=== PATIENT | female | born 1970 | race African-American/Black ===

== ENCOUNTER 2016-10-30 16:46 | Emergency (ER) | payer OTHER ==
[~2016-10-30] VITALS: Ht 152.4 cm; Wt 109.8 kg
[~2016-10-30 16:46] MED LIST: CAL40 PO
[2016-10-30 17:11] VITALS: BP 154/82
== END 2016-10-30 18:03 | disposition home or self-care (01) ==
LOC: ED 16:46
DX: S83.411A Sprain of medial collateral ligament of right knee, initial encounter (principal); I10 Essential (primary) hypertension; Z88.0 Allergy status to penicillin; Z88.5 Allergy status to narcotic agent; X58.XXXA Exposure to other specified factors, initial encounter; Y93.89 Activity, other specified; Y92.89 Other specified places as the place of occurrence of the external cause; Y99.8 Other external cause status

== ENCOUNTER 2016-11-29 18:05 | Emergency (ER) | payer OTHER ==
[~2016-11-29] VITALS: Ht 152.4 cm; Wt 108.0 kg
[2016-11-29 20:01] VITALS: BP 156/80
== END 2016-11-29 20:01 | disposition home or self-care (01) ==
LOC: ED 18:05
DX: J02.9 Acute pharyngitis, unspecified (principal); J20.9 Acute bronchitis, unspecified; I10 Essential (primary) hypertension; Z88.0 Allergy status to penicillin; Z88.5 Allergy status to narcotic agent

== ENCOUNTER 2017-04-26 14:08 | Inpatient (IN) | payer OTHER ==
[~2017-04-26] VITALS: Ht 152.4 cm; Wt 108.9 kg
[2017-04-26 15:37] LABS: BASOPHIL % 0.1 % (0-2); PLATELET COUNT 355 x10^3mcL (130-400)
[2017-04-26 15:38] LABS: CALCIUM 8.7 mg/dL (8.5-10.1); CARBON DIOXIDE 27.7 mmol/L (21-32); CHLORIDE SERUM 104 mmol/L (98-107); CREATININE SERUM 0.9 mg/dL (0.6-1.0); GFR1 > 60 mL/min; GLUCOSE SERUM 101 mg/dL (74-106); POTASSIUM SERUM 3.8 mmol/L (3.5-5.1); RED CELL DISTRIBUTION WIDTH 17.9 % (11.5-14.5); SODIUM SERUM 140 mmol/L (136-145)
[2017-04-26 15:44] LABS: ALKALINE PHOSPHATASE 85 U/L (46-116); ALT/SGPT 32 U/L (14-59); AST/SGOT 15 U/L (15-37); BILIRUBIN TOTAL 0.35 mg/dL (0.20-1.00); LIPASE 192 IU/L (73-393); TOTAL PROTEIN, SERUM 7.9 g/dL (6.4-8.2)
[2017-04-26 15:45] LABS: ALBUMIN 3.3 g/dL (3.4-5.0)
[2017-04-26 17:10] LABS: UA SPECIFIC GRAVITY 1.025 (1.005-1.035); microscopic required? YES; urine erythrocyte 1+ (NEGATIVE)
[2017-04-26 17:18] LABS: AMPHETAMINE QUAL UR NONE DETECTED (NEG <=1000)
[2017-04-26 17:38] LABS: T3 TOTAL 1.05 ng/mL
[2017-04-26 17:40] LABS: FREE THYROXINE INDEX 2.5 ug/dL (1.4-4.5); T4(THYROXINE) 7.3 ug/dL (4.7-13.3)
[2017-04-26 17:43] LABS: MAGNESIUM 2.3 mg/dL (1.8-2.4); PHOSPHOROUS 3.1 mg/dL (2.5-4.9)
[2017-04-26 17:50] VITALS: BP 167/97
[2017-04-26 17:51] LABS: CHOLESTEROL/HDL RATIO 4.2
[2017-04-26 21:15] VITALS: BP 158/77
[2017-04-27 05:48] VITALS: BP 151/78
[2017-04-27 07:33] LABS: BASOPHIL % 0.3 % (0-2); PLATELET COUNT 320 x10^3mcL (130-400)
[2017-04-27 07:40] LABS: RED CELL DISTRIBUTION WIDTH 17.6 % (11.5-14.5); rbc morphology (normal/abnorm) ABNORMAL (NORMAL)
[2017-04-27 07:53] LABS: CALCIUM 8.2 mg/dL (8.5-10.1); CARBON DIOXIDE 26.7 mmol/L (21-32); CHLORIDE SERUM 103 mmol/L (98-107); CREATININE SERUM 0.9 mg/dL (0.6-1.0); GFR1 > 60 mL/min; GLUCOSE SERUM 91 mg/dL (74-106); MAGNESIUM 2.1 mg/dL (1.8-2.4); PHOSPHOROUS 3.2 mg/dL (2.5-4.9); SODIUM SERUM 139 mmol/L (136-145)
[2017-04-27 09:15] VITALS: BP 144/73
[2017-04-27 11:06] VITALS: Ht 152.4 cm; Wt 108.9 kg
[2017-04-27 12:50] VITALS: BP 153/84
[2017-04-27 16:40] VITALS: BP 158/80
[2017-04-27 21:16] VITALS: BP 130/64
[2017-04-28 05:42] VITALS: BP 144/78
[2017-04-28 07:49] LABS: BASOPHIL % 0.3 % (0-2); CALCIUM 8.3 mg/dL (8.5-10.1); CHLORIDE SERUM 104 mmol/L (98-107); CREATININE SERUM 0.9 mg/dL (0.6-1.0); GFR1 > 60 mL/min; GLUCOSE SERUM 90 mg/dL (74-106); PLATELET COUNT 306 x10^3mcL (130-400); POTASSIUM SERUM 3.6 mmol/L (3.5-5.1); RED CELL DISTRIBUTION WIDTH 17.8 % (11.5-14.5); SODIUM SERUM 138 mmol/L (136-145); rbc morphology (normal/abnorm) ABNORMAL (NORMAL)
[2017-04-28 09:45] VITALS: BP 161/68
[2017-04-28] MEDS ORDERED: LIPI10 PO (10:27)
[2017-04-28] MEDS ORDERED: TOPROL XL50 MG PO (10:28)
[2017-04-28] MEDS ORDERED: ZES5 PO (10:29)
[2017-04-28] MEDS ORDERED: ECO81 PO (10:30)
[2017-04-28] MEDS ORDERED: PERCOCET1 TAB PO (10:31)
[2017-04-28] MEDS ORDERED: LEV500 PO (10:31)
[2017-04-28] MEDS ORDERED: FIORICET1 CAP PO (10:31)
[2017-04-28] MEDS ORDERED: CLEOCIN HCL300 MG PO (10:32)
[2017-04-28] MEDS ORDERED: LAC PO (10:32)
[2017-04-28 10:58] VITALS: BP 149/82
[2017-04-28 10:59] VITALS: BP 149/82
[2017-04-28] MEDS ORDERED: HIBICLENS118 ML TOP ×2 (11:19→12:06)
[2017-04-28] MEDS ORDERED: BACO TOP ×2 (11:19→12:05)
== END 2017-04-28 12:20 | disposition home or self-care (01) | DRG 206 ==
LOC: ED 14:08 → DU 16:40
PROVIDERS: Emergency Medicine; Family Medicine
DX: M94.0 Chondrocostal junction syndrome [Tietze] (principal); L02.31 Cutaneous abscess of buttock; E44.1 Mild protein-calorie malnutrition; Z68.42 Body mass index [BMI] 45.0-49.9, adult; L02.32 Furuncle of buttock; L73.2 Hidradenitis suppurativa; I16.0 Hypertensive urgency; I10 Essential (primary) hypertension; R31.29 Other microscopic hematuria; R73.03 Prediabetes; E78.5 Hyperlipidemia, unspecified; E66.01 Morbid (severe) obesity due to excess calories; Z22.322 Carrier or suspected carrier of Methicillin resistant Staphylococcus aureus; Z53.29 Procedure and treatment not carried out because of patient's decision for other reasons
CPT/HCPCS: 83880; 84439; J1885; J2405; J2543; J3490; J7030; Q0092

== ENCOUNTER 2017-06-27 11:19 | Emergency (ER) | payer OTHER ==
[~2017-06-27] VITALS: Ht 152.4 cm; Wt 105.2 kg
[~2017-06-27 11:19] MED LIST changes: +BACO TOP; +CLEOCIN HCL300 MG PO; +ECO81 PO; +FIORICET1 CAP PO; +HIBICLENS118 ML TOP; +LAC PO; +LEV500 PO; +LIPI10 PO; +PERCOCET1 TAB PO; +TOPROL XL50 MG PO; +ZES5 PO
[2017-06-27 11:24] VITALS: BP 165/78
== END 2017-06-27 13:51 | disposition home or self-care (01) ==
LOC: ED 11:19
DX: M25.561 Pain in right knee (principal); I10 Essential (primary) hypertension; G89.29 Other chronic pain; L02.92 Furuncle, unspecified; Z88.0 Allergy status to penicillin; Z88.5 Allergy status to narcotic agent; Z88.8 Allergy status to other drugs, medicaments and biological substances
CPT/HCPCS: J1885; Q0092

== ENCOUNTER 2018-09-02 12:12 | Emergency (ER) | payer OTHER ==
[~2018-09-02] VITALS: Ht 152.4 cm; Wt 82.6 kg
[2018-09-02 12:32] VITALS: Ht 152.4 cm; Wt 82.6 kg
[2018-09-02 15:06] VITALS: BP 164/91
== END 2018-09-02 15:06 | disposition home or self-care (01) ==
LOC: ED 12:12
DX: S86.912A Strain of unspecified muscle(s) and tendon(s) at lower leg level, left leg, initial encounter (principal); I10 Essential (primary) hypertension; Z88.0 Allergy status to penicillin; Z88.5 Allergy status to narcotic agent; X58.XXXA Exposure to other specified factors, initial encounter; Y93.89 Activity, other specified; Y92.89 Other specified places as the place of occurrence of the external cause; Y99.8 Other external cause status

== ENCOUNTER 2018-11-12 18:56 | Emergency (ER) | payer OTHER ==
[~2018-11-12] VITALS: Ht 152.4 cm; Wt 83.5 kg
[2018-11-12 19:16] VITALS: Ht 152.4 cm; Wt 83.5 kg
[2018-11-12 21:16] LABS: BASOPHIL % 1.2 % (0-2); PLATELET COUNT 276 x10^3mcL (130-400); RED CELL DISTRIBUTION WIDTH 14.3 % (11.5-14.5)
[2018-11-12 21:26] LABS: CALCIUM 8.3 mg/dL (8.5-10.1); CARBON DIOXIDE 28.4 mmol/L (21-32); CHLORIDE SERUM 105 mmol/L (98-107); CREATININE SERUM 0.9 mg/dL (0.6-1.0); GFR1 > 60 mL/min; GLUCOSE SERUM 85 mg/dL (74-106); POTASSIUM SERUM 3.9 mmol/L (3.5-5.1); SODIUM SERUM 141 mmol/L (136-145)
[2018-11-12 21:43] LABS: ALBUMIN 3.5 g/dL (3.4-5.0); ALKALINE PHOSPHATASE 77 U/L (46-116); ALT/SGPT 19 U/L (14-59); AST/SGOT 18 U/L (15-37); BILIRUBIN TOTAL 0.1 mg/dL (0.20-1.00); T4(THYROXINE) 8.5 ug/dL (4.7-13.3); TOTAL PROTEIN, SERUM 7.1 g/dL (6.4-8.2)
[2018-11-12 22:06] VITALS: BP 169/78
== END 2018-11-12 23:51 | disposition home or self-care (01) ==
LOC: ED 18:56
PROVIDERS: Emergency Medicine
DX: N93.8 Other specified abnormal uterine and vaginal bleeding (principal); N85.00 Endometrial hyperplasia, unspecified; D25.9 Leiomyoma of uterus, unspecified; D64.9 Anemia, unspecified; E66.9 Obesity, unspecified; Z68.35 Body mass index [BMI] 35.0-35.9, adult; Z98.84 Bariatric surgery status
CPT/HCPCS: 36415; J7030

== ENCOUNTER 2019-02-09 10:54 | Emergency (ER) | payer OTHER ==
[~2019-02-09] VITALS: Ht 152.4 cm; Wt 82.6 kg
[2019-02-09 11:00] VITALS: Ht 152.4 cm; Wt 82.6 kg
[2019-02-09 13:27] LABS: CALCIUM 8.7 mg/dL (8.5-10.1); CARBON DIOXIDE 30.7 mmol/L (21-32); CHLORIDE SERUM 104 mmol/L (98-107); CREATININE SERUM 0.9 mg/dL (0.6-1.0); GFR1 > 60 mL/min; GLUCOSE SERUM 94 mg/dL (74-106); POTASSIUM SERUM 3.8 mmol/L (3.5-5.1); SODIUM SERUM 142 mmol/L (136-145)
[2019-02-09 13:32] LABS: BASOPHIL % 0.5 % (0-2)
[2019-02-09 13:33] LABS: PLATELET COUNT 415 x10^3mcL (130-400); RED CELL DISTRIBUTION WIDTH 15.9 % (11.5-14.5)
[2019-02-09 13:43] LABS: ALBUMIN 3.4 g/dL (3.4-5.0); ALKALINE PHOSPHATASE 82 U/L (46-116); ALT/SGPT 12 U/L (14-59); AST/SGOT 15 U/L (15-37); BILIRUBIN TOTAL 0.2 mg/dL (0.20-1.00); LIPASE 234 IU/L (73-393); T4(THYROXINE) 7.6 ug/dL (4.7-13.3)
[2019-02-09 13:53] LABS: UA SPECIFIC GRAVITY >=1.030 (1.005-1.035); microscopic required? YES; urine erythrocyte 1+ (NEGATIVE)
[2019-02-09 15:06] LABS: AMPHETAMINE QUAL UR NONE DETECTED (See below)
[2019-02-09 15:32] VITALS: BP 134/80
== END 2019-02-09 11:53 | disposition home or self-care (01) ==
LOC: ED 10:54
PROVIDERS: Emergency Medicine
DX: K92.1 Melena (principal); D64.9 Anemia, unspecified; I10 Essential (primary) hypertension; E66.9 Obesity, unspecified; Z98.84 Bariatric surgery status; Z68.35 Body mass index [BMI] 35.0-35.9, adult; Z98.890 Other specified postprocedural states; Z90.710 Acquired absence of both cervix and uterus
CPT/HCPCS: 36415; 83880; G0480

== ENCOUNTER 2020-01-08 19:24 | Emergency (ER) | payer OTHER ==
[~2020-01-08] VITALS: Ht 152.4 cm; Wt 89.8 kg
[2020-01-08 19:33] VITALS: BP 141/77; Ht 152.4 cm; Wt 89.8 kg
== END 2020-01-08 22:53 | disposition left against medical advice (07) ==
LOC: ED 19:24
DX: Z53.21 Procedure and treatment not carried out due to patient leaving prior to being seen by health care provider (principal)